=== PATIENT | male | born 1995 | race Caucasian/White ===

== ENCOUNTER 2019-07-28 19:27 | Emergency (ER) | payer BC, OTHER ==
[~2019-07-28] VITALS: Ht 185 cm; Wt 102.7 kg
[2019-07-28 19:47] VITALS: BP 117/78
[2019-07-28] MEDS ORDERED: IBUPROFEN 800 MG (MOTRIN) TAB PO STA (20:14)
--- NOTE | 2019-07-28 20:28 | Diagnostic Imaging Report ---
EXAMINATION: Left elbow. INDICATION: Elbow injury. FINDINGS: Alignment of the elbow is normal. There is a normal anterior humeral and radiocapitellar line. No cortical disruption or fracture evident. There are no findings of elevation of the fat pads to suggest the presence of a joint effusion. Soft tissues are unremarkable. IMPRESSION: Negative radiographs of the left elbow. Dictated by: Dictated on workstation # [id number]
--- NOTE | 2019-07-28 20:38 | ED Upper Extremity ---
General Chief Complaint: Upper Extremity Stated Complaint: LEFT ELBOW INJ Nursing Triage Note: LEFT ELBOW BRIEFLY CAUGHT IN BETWEEN ROLLERS THIS AM. LEFT ELBOW SWELLING, LIMITED FLEXION. Nursing Sepsis Screen: No Definite Risk History of Present Illness Date Seen by Provider: Jul 28, 2019 Time Seen by Provider: 19:55 Initial Comments 23-year-old male presents for injury to his elbow elbow that occurred at 8:00 this morning. He was at work when it was caught between 2 rollers. He put some ice on it and noted that he did not have range of motion. He was able to continue doing his job. He took ibuprofen 600 mg at the time of injury. His last tetanus vaccine was within 5 years. Onset: this morning Pain/Injury Location: left elbow Method of Injury: other Allergies and Home Medications Allergies Coded Allergies: red dye (Verified Allergy, Unknown, 07/28/19) Uncoded Allergies: IV CONTRAST (Adverse Reaction, Unknown, 07/28/19) Home Medications No Active Prescriptions or Reported Meds Patient Home Medication List Home Medication List Reviewed: Yes Review of Systems Constitutional: no symptoms reported, see HPI Musculoskeletal: see HPI, joint pain (left elbow), muscle pain (left elbow) All Other Systems Reviewed Negative Unless Noted: Yes Past Hbqfuvq-Kqtaop-Auobnx Hx Past Med/Social Hx: Reviewed Nursing Past Med/Soc Hx Patient Social History Alcohol Use: Occasionally Uses Recreational Drug Use: No Smoking Status: Never a Smoker Type Used: Smokeless Tobacco 2nd Hand Smoke Exposure: No Recent Foreign Travel: No Contact w/Someone Who Travel: No Recent Infectious Disease Expo: No Recent Hopitalizations: No Physical Abuse: No Sexual Abuse: No Mistreated: No Fear: No Immunizations Up To Date Tetanus Booster (TDap): Unknown Seasonal Allergies Seasonal Allergies: No Past Medical History Surgeries: Yes (COLONOSCOPY) Respiratory: Yes RSV Cardiac: No Neurological: No Genitourinary: No Gastrointestinal: Yes Gastrointestinal Bleed Musculoskeletal: No Endocrine: No HEENT: No Cancer: No Psychosocial: No Blood Disorders: No Physical Exam Vital Signs Vital Signs - First Documented 07/28/19 19:47 Temp 36.5 Pulse 77 Resp 16 B/P (MAP) 117/78 (91) Pulse Ox 100 O2 Delivery Room Air Capillary Refill : Less Than 3 Seconds Height, Weight, BMI Height: '" Weight: lbs. oz. kg; 30.00 BMI Method: General Appearance: WD/WN, no apparent distress Cardiovascular: normal peripheral pulses, regular rate, rhythm Respiratory: chest non-tender, lungs clear, normal breath sounds Gastrointestinal: normal bowel sounds, non tender, soft Elbow/Forearm: Left, abrasions (superficial), bone tenderness (olecranon), limited ROM (full extension trace limitation of flexion), pain Wrist: Yes normal inspection, Yes non-tender, Yes no evidence of injury, Yes normal ROM Hand: normal inspection, non-tender, no evidence of injury, Left Neurologic/Tendon: normal sensation, normal motor functions, normal tendon functions (Power V/V biceps and triceps, no tenderness over triceps but trace swelling. ) Neurologic/Psychiatric: no motor/sensory deficits, alert, normal mood/affect, oriented x 3 Progress/Results/Core Measures Results/Orders My Orders Orders - PRINCESS BIGGS Elbow, Left, 3 Views (07/28/19 20:10) Ibuprofen Tablet (Motrin Tablet) (07/28/19 20:14) Vital Signs/I&O 07/28/19 19:47 Temp 36.5 Pulse 77 Resp 16 B/P (MAP) 117/78 (91) Pulse Ox 100 O2 Delivery Room Air Blood Pressure Mean: 91 Diagnostic Imaging Diagonstic Imaging: Xray Plain Films/CT/US/NM/MRI: other (elbow) Comments NAME: [facility] REC#: [id number] PT STATUS: REG ER : 1995 PHYSICIAN: PRINCESS BIGGS ADMIT DATE: 07/28/19/ER Draft Date of Exam:07/28/19 ELBOW, LEFT, 3 VIEWS EXAMINATION: Left elbow. INDICATION: Elbow injury. FINDINGS: Alignment of the elbow is normal. There is a normal anterior humeral and radiocapitellar line. No cortical disruption or fracture evident. There are no findings of elevation of the fat pads to suggest the presence of a joint effusion. Soft tissues are unremarkable. IMPRESSION: Negative radiographs of the left elbow. Dictated on workstation # [id number] Dict: 07/28/192020 Trans: 07/28/192027 [facility] [id number] Interpreted by: EMMA PETERS MD Electronically signed by: Reviewed: Reviewed by Me Departure Impression Primary Impression: Contusion of left elbow Qualified Codes: S50.02XA - Contusion of left elbow, initial encounter Disposition: 01 HOME, SELF-CARE Condition: Improved Departure-Patient Inst. Decision time for Depature: 20:35 Referrals: NO,LOCAL PHYSICIAN (PCP) Primary Care Physician [facility] [place] Patient Instructions: Contusion (DC), Elbow Sprain (DC) Add. Discharge Instructions: Ice to left elbow for 20 minutes every 2 hours while awake. Sling as needed. Carson wrap to left elbow. Alternate between ibuprofen 600 mg and Tylenol 650 g every 4 hours for pain or swelling. Follow-up with your primary care provider if symptoms are not improving or worsen. Return to emergency department for new, urgent health care needs. All discharge instructions reviewed with patient and/or family. Voiced un derstanding. Scripts No Active Prescriptions or Reported Meds PRINCESS BIGGS Jul 28, 2019 20:38
--- OUTSIDE RECORDS SUMMARY | 2019-07-28 23:14 | XMS REPORT | Continuity of Care Document ---
Author Organization Unknown Address Unknown Phone Unavailable Allergies Active Description Code Type Severity Reaction Onset Reported/Identified Relationship to Patient Clinical Status Yes IV CONTRAST IV CONTRAST Unknown N/A 07/28/2019 Yes red dye [id number] Drug Allergy Unknown N/A 07/28/2019 Medications There is no data. Problems There is no data. Procedures There is no data. Results There is no data. Encounters ACCT No. Visit Date/Time Discharge Status Pt. Type Provider Facility Loc./Unit Complaint [id number] 07/28/2019 19:30:00 020 20:42:00 DIS Emergency [facility]INC[facility] BIGGS [facility] ER LEFT ELBOW INJ
== END 2019-07-28 20:42 | disposition home or self-care (01) ==
LOC: ER 19:30
DX: S50.02XA Contusion of left elbow, initial encounter (principal); Z91.041 Radiographic dye allergy status; W23.0XXA Caught, crushed, jammed, or pinched between moving objects, initial encounter
CPT/HCPCS: 73080